=== PATIENT | female | born 1995 | race Caucasian/White ===

== ENCOUNTER 2022-07-19 09:14 | Inpatient (IN) | payer BC ==
[~2022-07-19] VITALS: Ht 157.5 cm; Wt 49.2 kg
--- NOTE | 2022-07-19 09:28 | ED General ---
General Chief Complaint: Neurological Problems Stated Complaint: SEIZURE Source of Information: Patient, EMS Exam Limitations: No Limitations History of Present Illness Date Seen by Provider: July 19, 2022 Time Seen by Provider: 09:18 Initial Comments 26-year-old female presents to the emergency department today for reported seizure activity. She was at work when she had a witnessed seizure-like event. She does not remember the event at all but does recall being dizzy with room spinning sensation prior to the onset of her symptoms. She denies any recent illnesses to include fevers chills chest pain shortness of breath abdominal pain or changes in bowel or bladder habits. She does have a myriad of chronic GI issues and has a PEG tube in place for nutrition as she has frequent vomiting and diarrhea. She states she is chronically hypokalemic. No history of seizure disorder. All other systems reviewed and negative except documented per HPI. Voice recognition software was used to help create this chart Allergies and Home Medications Allergies Coded Allergies: gluten (Verified Allergy, Unknown, 07/19/22) prochlorperazine (Verified Allergy, Unknown, 07/19/22) Patient Home Medication List Home Medication List Reviewed: Yes Acetaminophen (Tylenol Extra Strength) 500 Mg Tablet, 500-1,000 MG PO Q8H PRN for PAIN-MILD (1-4), (Reported) Entered as Reported by: LISA GUAJARDO on 07/19/221506 Last Action: Reviewed Baclofen (Baclofen) 10 Mg Tablet, 10 MG PO TID, (Reported) Entered as Reported by: LISA GUAJARDO on 07/19/221506 Last Action: Reviewed Chlorpromazine HCl (Chlorpromazine HCl) 10 Mg Tablet, 10 MG PO HS, (Reported) Entered as Reported by: LISA GUAJARDO on 07/19/221506 Last Action: Reviewed Hydroxyzine HCl (Hydroxyzine HCl) 10 Mg/5 Ml Solution, 5 ML PO TID PRN for ANXIETY/HIVES, (Reported) Entered as Reported by: LISA GUAJARDO on 07/19/221506 Last Action: Reviewed Ibuprofen (Ibuprofen) 200 Mg Tablet, 400-600 MG PO Q8H PRN for PAIN-MILD (1-4), (Reported) Entered as Reported by: LISA GUAJARDO on 07/19/221506 Last Action: Reviewed Mirtazapine (Mirtazapine) 15 Mg Tab.rapdis, 7.5 MG PO HS, (Reported) Entered as Reported by: LISA GUAJARDO on 07/19/221506 Last Action: Reviewed Multivitamin (Multivitamin) 1 Each Tablet, 1 EACH PO DAILY, (Reported) Entered as Reported by: LISA GUAJARDO on 07/19/221506 Last Action: Reviewed Omeprazole Magnesium (Omeprazole Magnesium) 20 Mg Capsule.dr, 20 MG PO DAILY, (Reported) Entered as Reported by: LISA GUAJARDO on 07/19/221506 Last Action: Reviewed Promethazine HCl (Promethazine Tablet) 25 Mg Tablet, 12.5-25 MG PO TID, (Report ed) Entered as Reported by: LISA GUAJARDO on 07/19/221506 Last Action: Reviewed Review of Systems Review of Systems Constitutional: see HPI Past Npeolrj-Jwmlun-Vbfyez Hx Patient Social History Tobacco Use?: No Use of E-Cig and/or Vaping dev: No Substance use?: No Alcohol Use?: No Family Medical History Reviewed Nursing Family Hx No Pertinent Family Hx Physical Exam Vital Signs Vital Signs - First Documented 07/19/22 09:14 Temp 35.0 Pulse 109 Resp 20 B/P (MAP) 125/63 (83) Pulse Ox 100 O2 Delivery Room Air Capillary Refill : Height, Weight, BMI Height: '" Weight: lbs. oz. kg; BMI Method: General Appearance: No Apparent Distress, WD/WN Eyes: Bilateral Eye Normal Inspection, Bilateral Eye PERRL, Bilateral Eye EOMI HEENT: Pharynx Normal, Other (Abrasion left lateral tongue) Neck: Full Range of Motion, Non Tender, Supple Respiratory: Chest Non Tender, Lungs Clear, Normal Breath Sounds, No Accessory Muscle Use Cardiovascular: Regular Rate, Rhythm, No Murmur, Normal Peripheral Pulses Gastrointestinal: Normal Bowel Sounds, Non Tender, Soft, Other (PEG tube left main abdomen) Extremity: Normal Capillary Refill, Normal Inspection, Normal Range of Motion, Non Tender, No Calf Tenderness Neurologic/Psychiatric: Alert, Oriented x3, No Motor/Sensory Deficits, Normal Mood/Affect, market development executive II-XII Norm as Tested Progress/Results/Core Measures Suspected Sepsis SIRS Temperature: Pulse: Respiratory Rate: Laboratory Tests 07/19/22 09:35: White Blood Count 9.1 Blood Pressure / Mean: Laboratory Tests 07/19/22 09:35: Creatinine 0.88, Platelet Count 527H, Total Bilirubin 0.2 Results/Orders Lab Results Laboratory Tests Test 07/19/22 09:35 Range/Units White Blood Count 9.1 4.3-11.0 10^3/uL Red Blood Count 4.94 3.80-5.11 10^6/uL Hemoglobin 13.6 11.5-16.0 g/dL Hematocrit 40 35-52 % Mean Corpuscular Volume 81 80-99 fL Mean Corpuscular Hemoglobin 28 25-34 pg Mean Corpuscular Hemoglobin Concent 34 32-36 g/dL Red Cell Distribution Width 13.3 10.0-14.5 % Platelet Count 527 H 130-400 10^3/uL Mean Platelet Volume 8.7 L 9.0-12.2 fL Immature Granulocyte % (Auto) 0 % Neutrophils (%) (Auto) 42 42-75 % Lymphocytes (%) (Auto) 46 H 12-44 % Monocytes (%) (Auto) 9 0-12 % Eosinophils (%) (Auto) 1 0-10 % Basophils (%) (Auto) 1 0-10 % Neutrophils # (Auto) 3.8 1.8-7.8 10^3/uL Lymphocytes # (Auto) 4.2 H 1.0-4.0 10^3/uL Monocytes # (Auto) 0.8 0.0-1.0 10^3/uL Eosinophils # (Auto) 0.1 0.0-0.3 10^3/uL Basophils # (Auto) 0.1 0.0-0.1 10^3/uL Immature Granulocyte # (Auto) 0.0 0.0-0.1 10^3/uL Sodium Level 133 L 135-145 MMOL/L Potassium Level 2.6 L 3.6-5.0 MMOL/L Chloride Level 95 L 98-107 MMOL/L Carbon Dioxide Level 21 21-32 MMOL/L Anion Gap 17 H 5-14 MMOL/L Blood Urea Nitrogen 10 7-18 MG/DL Creatinine 0.88 0.60-1.30 MG/DL Estimat Glomerular Filtration Rate 92 BUN/Creatinine Ratio 11 Glucose Level 95 70-105 MG/DL Calcium Level 10.3 H 8.5-10.1 MG/DL Corrected Calcium 9.9 8.5-10.1 MG/DL Magnesium Level 1.9 1.6-2.4 MG/DL Total Bilirubin 0.2 0.1-1.0 MG/DL Aspartate Amino Transf (AST/SGOT) 36 H 5-34 U/L Alanine Aminotransferase (ALT/SGPT) 34 0-55 U/L Alkaline Phosphatase 93 40-136 U/L Total Protein 7.5 6.4-8.2 GM/DL Albumin 4.5 3.2-4.5 GM/DL My Orders Orders - LUIS FORD DO Comprehensive Metabolic Panel (07/19/22 09:26) Ct Head Wo (07/19/22 09:26) Ekg Tracing (07/19/22 09:26) Cbc With Automated Diff (07/19/22 09:26) Diazepam Injection (Valium Injection) (07/19/22 09:30) Magnesium (07/19/22 10:33) Potassium Cl 10meq/50ml Ivpb (Kcl 10 Meq (07/19/22 10:45) Potassium Chloride (Tablet) (K Dur Table (07/19/22 10:45) Ed Admission (Communication) (07/19/22 10:35) Ns Iv 500 Ml (Sodium Chloride 0.9%) (07/19/22 10:40) Promethazine Injection (Phenergan Injec (07/19/22 10:45) Medications Given in ED Current Medications Medications Dose Ordered Sig/Emily Route Start Time Stop Time Status Last Admin Dose Admin Diazepam 2.5 mg ONCE ONCE IVP 07/19/22 09:30 07/19/22 09:31 DC 07/19/22 09:52 2.5 MG Potassium Chloride 40 meq ONCE ONCE PO 07/19/22 10:45 07/19/22 10:46 DC 07/19/22 10:43 40 MEQ Promethazine HCl 25 mg ONCE ONCE IVP 07/19/22 10:45 07/19/22 10:46 DC 07/19/22 10:55 25 MG Sodium Chloride 500 ml @ STK-MED ONCE .ROUTE 07/19/22 10:40 07/19/22 10:42 DC 07/19/22 10:43 100 MLS/HR Vital Signs/I&O 5/17/23 5/17/23 5/17/23 5/17/23 09:14 11:28 11:45 11:45 Temp 35.0 35.0 Pulse 109 102 Resp 20 16 B/P (MAP) 125/63 (83) 97/64 105/68 (80) Pulse Ox 100 100 98 O2 Delivery Room Air Room Air Room Air Room Air 07/19/22 11:45 Pulse 99 Capillary Refill : ECG Comment Sinus rhythm with a rate of 94 bpm. Normal intervals. Normal axis. No ST or T wave abnormalities. No ectopy. Critical Care Note Critical Care Total Time (minutes) 40 Departure Communication (Admissions) Patient is hemodynamically stable. She had no recurrence of seizure-like activity here though she did find her tongue I do think she actually had a seizure. Potassium is quite low here. The concern that she may have had a dysrhythmia causing seizure activity. She was having some vertiginous type symptoms when she got here. She is given p.o. Valium and this did improve her symptoms. CT scan of her head is negative. I have independently reviewed the images as well. Sodium is slightly low and calcium is a little high. I have added a magnesium level onto her current labs after hypokalemia was identified. I ordered IV potassium as well as p.o. for repletion. I Dr. Dr. Hendricks who wants to admit the patient to the ICU for cardiac monitoring, potassium repletion. I talked to Dr. Peña at her request and he agrees to see the patient in consult Impression Primary Impression: Hypokalemia Additional Impression: Observed seizure-like activity Disposition: ADMITTED INPATIENT Condition: Stable Admissions Decision to Admit Reason: Admit from ER (General) LUIS FORD DO July 19, 2022 09:28
--- NOTE | 2022-07-19 09:54 | Diagnostic Imaging Report ---
PROCEDURE: CT head without contrast. TECHNIQUE: Multiple contiguous axial images were obtained through the brain without the use of intravenous contrast. Auto Exposure Controls were utilized during the CT exam to meet ALARA standards for radiation dose reduction. INDICATION: Seizure with loss of consciousness. FINDINGS: The ventricles and sulci are within normal limits for size. There is no intracranial hemorrhage identified. There is no abnormal mass effect or shift of the midline structures. IMPRESSION: Unremarkable CT of the head. Dictated by: Dictated on workstation # [id number]
[2022-07-19 09:55] LABS: ALBUMIN 4.5 GM/DL (3.2-4.5); POTASSIUM 2.6 MMOL/L (3.6-5.0)
[2022-07-19 09:56] LABS: CALCIUM 10.3 MG/DL (8.5-10.1)
[2022-07-19 09:57] LABS: TOTAL PROTEIN 7.5 GM/DL (6.4-8.2)
[2022-07-19 09:58] LABS: BASOPHILS # (AUTO) 0.1 10^3/uL (0.0-0.1); BASOPHILS % (AUTO) 1 % (0-10); EOSINOPHILS # (AUTO) 0.1 10^3/uL (0.0-0.3); EOSINOPHILS % (AUTO) 1 % (0-10); HEMATOCRIT 40 % (35-52); HEMOGLOBIN 13.6 g/dL (11.5-16.0); LYMPHOCYTES # (AUTO) 4.2 10^3/uL (1.0-4.0); LYMPHOCYTES % (AUTO) 46 % (12-44); MEAN CORPUSCULAR HEMOGLOBIN 28 pg (25-34); MEAN CORPUSCULAR HGB CONC 34 g/dL (32-36); MEAN CORPUSCULAR VOLUME 81 fL (80-99); MEAN PLATELET VOLUME 8.7 fL (9.0-12.2); MONOCYTES # (AUTO) 0.8 10^3/uL (0.0-1.0); MONOCYTES % (AUTO) 9 % (0-12); NEUTROPHILS # (AUTO) 3.8 10^3/uL (1.8-7.8); NEUTROPHILS % (AUTO) 42 % (42-75); PLATELET COUNT 527 10^3/uL (130-400); WHITE BLOOD COUNT 9.1 10^3/uL (4.3-11.0)
[2022-07-19 09:59] LABS: BILIRUBIN,TOTAL 0.2 MG/DL (0.1-1.0)
[2022-07-19 10:01] LABS: CREATININE SERUM 0.88 MG/DL (0.60-1.30)
[2022-07-19] MEDS ORDERED: NS IV 500 ML 500 ML ONE (10:40)
[2022-07-19] MEDS: POTASSIUM CL 10MEQ/50ML IVPB 50 ML IV SCH ×3 (10:43→13:55)
[2022-07-19] MEDS ORDERED: PROMETHAZINE INJ 25 MG/ML (PHENERGAN) AMP IVP ONE (10:45)
[2022-07-19] MEDS ORDERED: KCL 20 MEQ TAB (K-DUR) PO ONE (10:45)
--- NOTE | 2022-07-19 11:17 | Consultation-Cardiology ---
HPI-Cardiology Cardiology Consultation Date of Consultation 07/19/22 Date of Admission Time Seen by Provider: 14:00 Indication: syncope HPI Patient is a very pleasant 26 y.o. female with history of Celiac disease.Reports history of chronic hypokalemia. Has PEG tube. Patient works at [employer] in [place] and reports she was getting an event ready at work when she had witnessed syncopal event with seizure-like activity while standing. Patient reports feeling dizzy and lightheaded just prior to event and then remembers being in ambulance. Denies any chest pain, dypsnea, palpitations. Denies any previous history of dizziness, lightheadedness or seizure. Home Medications & Allergies Allergies: Coded Allergies: gluten (Verified Allergy, Unknown, 07/19/22) prochlorperazine (Verified Allergy, Unknown, 07/19/22) Home Medication List Reviewed: Yes OTH-[id number]-Yqmygc Hx Patient Social History Employed/Student: employed Smoking Status: Never a Smoker Have you traveled recently?: No Alcohol Use?: No Substance type: Marijuana Past Medical History Celiac disease Family Medical History Significant Family History: No Pertinent Family Hx Review of Systems-General Review of Systems Constitutional: see HPI EENTM: see HPI, no symptoms reported; No blurred vision, No double vision Respiratory: see HPI; No dyspnea on exertion, No short of breath Cardiovascular: see HPI; No chest pain, No Hx of Intervention, No syncope, No vascular heart diseas Genitourinary: No dysuria, No frequency Musculoskeletal: No back pain, No joint pain Reviewed Test Results Reviewed Test Results Lab Laboratory Tests 07/19/22 09:35: White Blood Count 9.1, Red Blood Count 4.94, Hemoglobin 13.6, Hematocrit 40, Mean Corpuscular Volume 81, Mean Corpuscular Hemoglobin 28, Mean Corpuscular Hemoglobin Concent 34, Red Cell Distribution Width 13.3, Platelet Count 527H, Mean Platelet Volume 8.7L, Immature Granulocyte % (Auto) 0, Neutrophils (%) (Auto) 42, Lymphocytes (%) (Auto) 46H, Monocytes (%) (Auto) 9, Eosinophils (%) (Auto) 1, Basophils (%) (Auto) 1, Neutrophils # (Auto) 3.8, Lymphocytes # (Auto) 4.2H, Monocytes # (Auto) 0.8, Eosinophils # (Auto) 0.1, Basophils # (Auto) 0.1, Immature Granulocyte # (Auto) 0.0, Sodium Level 133L, Potassium Level 2.6L, Chloride Level 95L, Carbon Dioxide Level 21, Anion Gap 17H, Blood Urea Nitrogen 10, Creatinine 0.88, Estimat Glomerular Filtration Rate 92, BUN/Creatinine Ratio 11, Glucose Level 95, Calcium Level 10.3H, Corrected Calcium 9.9, Magnesium Level 1.9, Total Bilirubin 0.2, Aspartate Amino Transf (AST/SGOT) 36H, Alanine Aminotransferase (ALT/SGPT) 34, Alkaline Phosphatase 93, Total Protein 7.5, Albumin 4.5 ECG Impression ECG Initial ECG Rhythm: Normal Sinus Physical Exam Physical Exam Vital Signs Vital Signs - First Documented 07/19/22 09:14 Temp 35.0 Pulse 109 Resp 20 B/P (MAP) 125/63 (83) Pulse Ox 100 O2 Delivery Room Air Capillary Refill : Height, Weight, BMI Height: '" Weight: lbs. oz. kg; 18.00 BMI Method: General Appearance: No Apparent Distress, WD/WN Eyes: Bilateral Eye Normal Inspection, Bilateral Eye PERRL, Bilateral Eye EOMI HEENT: Pharynx Normal, Other (Abrasion left lateral tongue) Neck: Full Range of Motion, Non Tender, Supple Respiratory: Chest Non Tender, Lungs Clear, Normal Breath Sounds, No Accessory Muscle Use Cardiovascular: Regular Rate, Rhythm, No Murmur, Normal Peripheral Pulses Gastrointestinal: Normal Bowel Sounds, Non Tender, Soft, Other (PEG tube left main abdomen) Extremity: Normal Capillary Refill, Normal Inspection, Normal Range of Motion, Non Tender, No Calf Tenderness Neurologic/Psychiatric: Alert, Oriented x3, No Motor/Sensory Deficits, Normal Mood/Affect, marketing support coordinator II-XII Norm as Tested A/P-Cardiology Admission Diagnosis Syncope with Seizure like activity Hypokalemia Hyponatremia Celiac disease Assessment/Plan Sycnope with Seizure like activity- had syncopal episode at work while standing earlier today. Reports hx of syncope in the remote past. Reports episode of dizziness and lightheadedness just prior to event. Denies any hx of seizure disorder. EKG showing SR. I am suspecting orthostatic hypotension, although underlying arrythmia cannot be ruled out. Will place on telemetry to continue to monitor for any underlying arrhythmia. Evaluate 2D Echo. Will plan for [facility] 2 week event monitor prior to discharge. Celiac disease, has PEG tube Hypokalemia, replace and continue to monitor. Reports hx of chronic hypokalemia Hyponatremia Thank you for allowing us to participate in the management of Ms. Engel. This is Paulina Barragan PA-C, as a scribe for Dr. Peña. Patient was seen and evaluated with Paulina, she was laying down in bed, feeling better Patient does not describe any aura, no significant postictal episode. I am not sure if she had syncope secondary to hypotension or cardiac arrhythmia due to hypokalemia. Patient reported history of chronic hypokalemia and she is tolerating her baseline hypokalemia Receiving potassium Will monitor on telemetry, evaluate 2D echo, will consider Zio patch Discussed increasing fluid and salt intake and try to keep her blood pressure elevated. Increase her caloric intake PAULINA JONES July 19, 2022 11:17 OTILIA PEÑA MD July 19, 2022 15:17
[2022-07-19 11:28] VITALS: BP 97/64
[2022-07-19] MEDS ORDERED: HYDROmorphone 2 MG/ML VIAL (DILAUDID) IVP PRN (12:00)
[2022-07-19] MEDS ORDERED: MELATONIN 3 MG TABLET PO PRN (12:00)
--- NOTE | 2022-07-19 12:31 | History & Physical-Hospitalist ---
History of Present Illness HPI/Chief Complaint Pt is a 26yoCF with a PMH of celiac disease, gastroparesis, PEG and TPN dependent status, and chronic hypokalemia who presented to the ER due to seizure like activity. She states she was setting up for an event at her job ([employer]) and moving tabel when she started to feel lightheaded and dizzy. She states her coworker noticed she didn't look right and asked her about it. She then doesnt' rememeber anything. Per witnesses she passed out and had tonic clonic like movements. She did not have any urinary incontinence but did bite her tongue. Then next thing she remembers is waking up in an ambulance. She sta ajit it took her a minute to get her bearings but does not describe any postictal type symptoms. She also complains of some chronic abd pain and some back pain since this happened. She normally takes Baclofen but in the hospital is given Dilaudid which helps. Source: patient Date Seen 07/19/22 Time Seen by a Provider: 12:21 Attending Physician Claudia Van DO PCP Admitting Physician: Steven Talbert MD Attending Physician: Steven Talbert MD Referring Physician Date of Admission July 19, 2022 at 11:45 Home Medications & Allergies Home Medications Reviewed patient Home Medication Reconciliation performed by pharmacy medication reconciliations electrical equipment technician and/or nursing. Patients Allergies have been reviewed. Allergies Allergies Coded Allergies gluten (Verified Allergy, Unknown, 07/19/22) prochlorperazine (Verified Allergy, Unknown, 07/19/22) Past Kvtiood-Czhciw-Dbwetm Hx Patient Social History Employed/Student: employed Tobacco Use?: No Smoking Status: Never a Smoker Use of E-Cig and/or Vaping dev: No Substance use?: Yes Substance type: Marijuana Additional substance use comme: MEDICAL CARD Alcohol Use?: No Pt feels they are or have been: No Immunizations Up To Date First/Initial COVID19 Vaccinat: YES Second COVID19 Vaccination Richard: YES Tetanus Booster (TDap): Unknown Current Status status: No status: No Communicates: Verbally Primary Language: American Preferred Spoken Language: American Implanted or Applied Medical D: Central venous access Family Medical History Reviewed Nursing Family Hx No Pertinent Family Hx Review of Systems Constitutional: see HPI Physical Exam Physical Exam Vital Signs Vital Signs - First Documented 07/19/22 09:14 Temp 35.0 Pulse 109 Resp 20 B/P (MAP) 125/63 (83) Pulse Ox 100 O2 Delivery Room Air Capillary Refill : Height, Weight, BMI Height: '" Weight: lbs. oz. kg; 18.00 BMI Method: General Appearance: No Apparent Distress, Chronically ill, Thin Respiratory: Lungs Clear, No Accessory Muscle Use, No Respiratory Distress Cardiovascular: Regular Rate, Rhythm, No Murmur Gastrointestinal: Normal Bowel Sounds, Soft, Other (PEG tube) Extremity: No Calf Tenderness, No Pedal Edema Neurologic/Psychiatric: Alert, Oriented x3, Normal Mood/Affect Results Results/Procedures Labs Laboratory Tests 07/19/22 09:35 07/19/22 17:57 07/20/22 05:18 Patient resulted labs reviewed. Imaging: Reviewed Imaging Report [facility] [place], [place] NAME: ASHLIE KING [facility] REC#: [id number] PT STATUS: ADM Maeve : 1995 PHYSICIAN: LUIS FORD DO ADMIT DATE: 07/19/22/ICU Signed Date of Exam:07/19/22 CT HEAD WO PROCEDURE: CT head without contrast. TECHNIQUE: Multiple contiguous axial images were obtained through the brain without the use of intravenous contrast. Auto Exposure Controls were utilized during the CT exam to meet ALARA standards for radiation dose reduction. INDICATION: Seizure with loss of consciousness. FINDINGS: The ventricles and sulci are within normal limits for size. There is no intracranial hemorrhage identified. There is no abnormal mass effect or shift of the midline structures. IMPRESSION: Unremarkable CT of the head. Dictated by: Dictated on workstation # [id number] Dict: 07/19/22 0949 Trans: 07/19/22 1149 [id number] Interpreted by: SUKI CHAIREZ MD Electronically signed by: SUKI CHAIREZ MD 07/19/22 1149 Assessment/Plan Admission Diagnosis Syncope with seizure like activity Admission Status: Observation Assessment and Plan Syncope from orthostasis vs seizure like activity vs arrythmia Hypokalemia Unsure if seizure Did bite tongue but otherwise sounds like syncope Discussed risks with patient and she is agreeable with Keppra and Neurology outpatient referral Cardiology consulted, appreciate recs Is very hypokalemic so concerning for underlying arrythmia as well They plan to place Zio patch tomorrow if nothing shows up on telemetry tonight Celiac disease PEG/TPN dependent Chronic Diarrhea Chronic Abd pain Celiac diet Diagnosis/Problems Diagnosis/Problems (1) Observed seizure-like activity (2) Hypokalemia STEVEN TALBERT MD July 19, 2022 12:31
[2022-07-19] MEDS: BACLOFEN 10 MG (LIORESAL) TAB PO SCH ×2 (12:47→20:25)
[2022-07-19] MEDS: ONDANSETRON 4 MG/2 ML (SDV) Z0FRAN IV PRN ×2 (14:57→21:07)
[2022-07-19] MEDS ORDERED: BACL10TA PO (15:07)
[2022-07-19] MEDS ORDERED: IBUP-2473 PO (15:07)
[2022-07-19] MEDS ORDERED: HYDR10SY16 PO (15:07)
[2022-07-19] MEDS ORDERED: MIRT-47 PO (15:07)
[2022-07-19] MEDS ORDERED: MULT-1136 PO (15:07)
[2022-07-19] MEDS ORDERED: CHLO10TA PO (15:07)
[2022-07-19] MEDS ORDERED: OMEP-254 PO (15:07)
[2022-07-19] MEDS ORDERED: ACET-2267 PO (15:07)
[2022-07-19] MEDS ORDERED: PROM25TA14 PO (15:07)
[2022-07-19] MEDS ORDERED: PROMETHAZINE INJ 25 MG/ML (PHENERGAN) AMP IVP NR (15:15)
[2022-07-19] MEDS ORDERED: HYDROmorphone 2 MG/ML VIAL (DILAUDID) IV NR (15:15)
--- NOTE | 2022-07-19 15:24 | Tele-ICU Consult ---
History of Present Illness History of Present Illness Date Seen by Provider: July 19, 2022 Time Seen by Provider: 15:23 Reason for Visit: syncope History of Present Illness (Tele-ICU Physician , consultation as per request of PCP Service provided via interactive audio and video tele[employer] E-CARE system to a patient admitted to ICU bed in [facility]. Available chart/ vitals / labs / Images reviewed H&P is from ER notes Patient's information available about PMH, Shx, Fhx allergy reviewed inEMR. ROS as per chart and RN report Now in ICU, hemodynamically stable Video assessment done using teleICU camera, rest of exam as per RN Discussed with RN. Hospital course: (07/19) 26 y/o F - Syncope - (?)Witnessed Seizure - Hx Celiac w/ Chronic Hypokal emia. A/p Sycnope with Seizure like activity- ( orthostatic hypotension vs arrythmia with low K . CTH - no abnormalities ) - cards consulted . ECHO WNL - monitor -- given p.o. Valium , keppra started Po by bedside MD N/V - as per patient , has cheronic issues and had multiple meds failed with only phenergan being helphull - resume , add PPI Celliarc dz - follows with GI - had PEG for malnutrition and intermittent TPN - ? refractory dz vs cofounding Dx - chronic abd pain ( agree with tx with dilaudid now - might need dose of steroids , but if stable enough , would rever to her GI MD ( or transfer ) Hypokalemia ( chronic ) - replace , monitor Hyponatremia - very mild Lines : , (Central Line Necessity Reviewed) [place]: OG: Nutrition: Analgesia: Anxiety/ delirium VTE Prophylaxis: Stress Ulcer Prophylaxis: ppi Glycemic Control: Plans in collaboration with bedside consultants and IM MDs. Discussed with RN to reach out if any questions or concerns A total of 20 minutes of critical care time was devoted to this patient today, required to treat and/or prevent further deterioration of critical care condition ( as above ) . I am remotely monitoring this patient from another state. I am unable to do the bedside exam, and history/physical and pertinent information is taken from other notes in the computer and bedside staff. . Allergies and Home Medications Allergies Coded Allergies: gluten (Verified Allergy, Unknown, 07/19/22) prochlorperazine (Verified Allergy, Unknown, 07/19/22) Home Medications Acetaminophen 500 Mg Tablet, 500-1,000 MG PO Q8H PRN for PAIN-MILD (1-4), (Reported) Baclofen 10 Mg Tablet, 10 MG PO TID, (Reported) Chlorpromazine HCl 10 Mg Tablet, 10 MG PO HS, (Reported) Hydroxyzine HCl 10 Mg/5 Ml Solution, 5 ML PO TID PRN for ANXIETY/HIVES, (Reported) Ibuprofen 200 Mg Tablet, 400-600 MG PO Q8H PRN for PAIN-MILD (1-4), (Reported) Mirtazapine 15 Mg Tab.rapdis, 7.5 MG PO HS, (Reported) TAKES OF A 15MG Multivitamin 1 Each Tablet, 1 EACH PO DAILY, (Reported) Omeprazole Magnesium 20 Mg Capsule.dr, 20 MG PO DAILY, (Reported) Promethazine HCl 25 Mg Tablet, 12.5-25 MG PO TID, (Reported) TAKES TO 1 (25MG) TAB Past Medical/Social/Family Hx Patient Social History Employed/Student: employed Tobacco Use?: No Smoking Status: Never a Smoker Smokeless Tobacco Frequency: Never a User Use of E-Cig and/or Vaping dev: No Substance use?: Yes Substance type: Marijuana holds medical marijuana card Alcohol Use?: No Pt stated abuse/neglect: No Immunizations Up To Date Influenza Vaccine Up-to-Date: No; Not Current First/Initial COVID19 Vaccinat: YES Second COVID19 Vaccination Richard: YES Tetanus Booster (TDap): Unknown Hepatitis A: Yes Hepatitis B: Yes Current Status status: No status: No Advance Directives: No Communicates: Verbally Primary Language: Cymraes Preferred Spoken Language: Cymraes Is interpretation needed?: No Implanted or Applied Medical D: Port-a-cath Review of Systems Constitutional: see HPI Focused Exam Height, Weight, BMI Height: '" Weight: lbs. oz. kg; 18.18 BMI Method: Exam Exam Patient acknowledged, consented, and participated in this virtual visit which was conducted using real time audio/video Vital Signs Date Time Temp Pulse Resp B/P (MAP) Pulse Ox O2 Delivery O2 Flow Rate FiO2 07/19/22 13:00 93 07/19/22 12:00 36.3 100 112/76 (88) 98 Room Air 07/19/22 11:45 99 07/19/22 11:45 105/68 (80) Room Air 07/19/22 11:28 35.0 102 16 97/64 100 Room Air 07/19/22 09:14 35.0 109 20 125/63 (83) 100 Room Air Height & Weight Height: '" Weight: lbs. oz. 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
[2022-07-19] MEDS: PANTOPRAZOLE 40 MG (PROTONIX) VIAL IVP SCH (15:39)
[2022-07-19] MEDS: HYDROmorphone 2 MG/ML VIAL (DILAUDID) IVP PRN ×3 (17:44→22:22)
[2022-07-19] MEDS: ACETAMINOPHEN 325 MG TABLET PO PRN (17:53)
[2022-07-19 18:18] LABS: POTASSIUM 3.7 MMOL/L (3.6-5.0)
[2022-07-19 18:23] LABS: CREATININE SERUM 0.67 MG/DL (0.60-1.30)
--- NOTE | 2022-07-19 18:27 | Diagnostic Imaging Report ---
INDICATION: ICU fever EXAMINATION: Chest 07/19/2022 FINDINGS: There is a chest port on the left with the tip at the junction of the SVC and right atrium. There is a right PICC line with the tip in the distal SVC. Heart and pulmonary vasculature normal. Lungs and pleural spaces clear. No pneumothorax. IMPRESSION: 1. No acute cardiopulmonary process. Dictated by: Dictated on workstation # [id number]
[2022-07-19] MEDS: MAGNESIUM 1 GM/100 ML IVPB 100 ML IV SCH ×2 (18:30→19:25)
--- NOTE | 2022-07-19 18:44 | Tele-ICU Progress Note ---
Progress Note patient developed fever patient report what had fever 2 weeks ago - blood work was done - negative results , resolved spontaneously cxr done - no infiltrate UA pending ordering PCT and blood cx form PICC ( placed 5 weeks ago , used nightly for TPN by patient ) ,and perpherally covid pending consider ABX if fever persists Focused Exam Height, Weight, BMI Height: '" Weight: lbs. oz. kg; 18.18 BMI Method: NICKY IZQUIERDO MD July 19, 2022 18:44
[2022-07-19] MEDS ORDERED: KCL 10 MEQ TAB (MICRO K) PO NR (18:45)
[2022-07-19] MEDS ORDERED: NS IV 500 ML 500 ML IV ONE (19:30)
[2022-07-19] MEDS ORDERED: VANCOMYCIN INJECTION 0.1 MG in NS (IVPB) 250 ML IV SCH (19:30)
[2022-07-19] MEDS ORDERED: VANCOMYCIN 1 GM/NS 250 ML IVPB IV NR ×2 (19:30)
[2022-07-19] MEDS: PROMETHAZINE 25 MG (PHENERGAN) TAB PO PRN (19:56)
[2022-07-19] MEDS: CEFEPIME INJECTION 1,000 MG in NS (IVPB) 50 ML IV SCH (20:33)
[2022-07-19 23:38] LABS: BILIRUBIN,URINE NEGATIVE (NEGATIVE); CLARITY,URINE CLEAR; COLOR,URINE YELLOW; GLUCOSE, URINE (UA) NEGATIVE (NEGATIVE); KETONES,URINE NEGATIVE (NEGATIVE); LEUKOCYTE ESTERASE ,URINE 1+ (NEGATIVE); NITRITE,URINE NEGATIVE (NEGATIVE); PROTEIN,URINE TRACE (NEGATIVE)
[2022-07-19 23:46] LABS: BACTERIA,URINE MODERATE /HPF
[2022-07-20] MEDS: PROMETHAZINE 25 MG (PHENERGAN) TAB PO PRN ×2 (00:04→04:23)
[2022-07-20] MEDS: HYDROmorphone 2 MG/ML VIAL (DILAUDID) IVP PRN ×10 (00:05→23:11)
[2022-07-20] MEDS ORDERED: VANCOMYCIN 500 MG/VIAL IV ONE (00:51)
[2022-07-20] MEDS ORDERED: NS (IVPB) 100 ML ONE (00:51)
[2022-07-20] MEDS: CEFEPIME INJECTION 1,000 MG in NS (IVPB) 50 ML IV SCH ×4 (01:16→20:35)
[2022-07-20] MEDS: ACETAMINOPHEN 325 MG TABLET PO PRN (01:45)
[2022-07-20] MEDS: VANCOMYCIN 500 MG/NS 100 ML IVPB IV SCH ×6 (02:47→19:24)
[2022-07-20 05:26] LABS: HEMATOCRIT 29 % (35-52); MEAN CORPUSCULAR HEMOGLOBIN 28 pg (25-34); MEAN CORPUSCULAR HGB CONC 34 g/dL (32-36); MEAN CORPUSCULAR VOLUME 82 fL (80-99); MEAN PLATELET VOLUME 8.8 fL (9.0-12.2); PLATELET COUNT 253 10^3/uL (130-400); WHITE BLOOD COUNT 4.4 10^3/uL (4.3-11.0)
[2022-07-20 05:42] LABS: CALCIUM 7.9 MG/DL (8.5-10.1); CREATININE SERUM 0.65 MG/DL (0.60-1.30); POTASSIUM 4.3 MMOL/L (3.6-5.0)
[2022-07-20] MEDS: ONDANSETRON 4 MG/2 ML (SDV) Z0FRAN IV PRN ×2 (05:51→12:44)
[2022-07-20] MEDS ORDERED: HYDROXYZINE HCL PO PRN (07:45)
--- NOTE | 2022-07-20 08:11 | Cardiology Progress Note ---
Subjective Date Seen by Provider: July 20, 2022 Time Seen by Provider: 08:09 Subjective/Events-last exam Patient was seen at bedside, complained of nausea, vomiting and diarrhea, had fever and hypotension Review of Systems General: No Chills, No Night Sweats; Fatigue; No Malaise, No Appetite, No Other HEENT: No Head Aches, No Visual Changes, No Eye Pain, No Ear Pain, No Dysphasia, No Sinus Congestion, No Post Nasal Drip, No Sore Throat, No Other Pulmonary: No Dyspnea, No Cough, No Pleuritic Chest Pain, No Other Cardiovascular: No: Chest Pain, Palpitations, Orthopnea, Paroxysmal Noc. Dyspnea, Edema, Lt Headedness, Other Objective-Cardiology Exam Last Set of Vital Signs Vital Signs 07/20/22 07/20/22 06:00 07:38 Temp 37.4 Pulse 105 Resp 16 B/P (MAP) 87/56 (66) Pulse Ox 96 O2 Delivery Room Air I&O Intake and Output 07/20/22 00:00 Intake Total 1565 ml Balance 1565 ml Intake Oral 465 ml IV Total 1100 ml # Voids 3 # Bowel Movements 2 Daily Weight Change No General: Alert, Oriented X3, Cooperative HEENT: Atraumatic, PERRLA Neck: Supple, No JVD, No Thyromegaly Lungs: Clear to Auscultation, Normal Air Movement Heart: Normal S1, Normal S2, No Murmurs, Other (Tachycardia) Abdomen: Soft, No Hepatosplenomegaly, No Masses Extremities: No Clubbing, No Cyanosis, No Edema, Normal Pulses, No Tenderness/Swelling Skin: No Rashes, No Breakdown, No Significant Lesion Neuro: Normal Speech, Normal Tone, Sensation Intact Psych/Mental Status: Mental Status NL, Mood NL Results Lab Laboratory Tests 07/19/22 09:35 07/19/22 17:57 07/20/22 05:18 A/P-Cardiology Admission Diagnosis Syncope with Seizure like activity Hypokalemia Hyponatremia Celiac disease Assessment/Plan Sycnope with Seizure like activity- had syncopal episode at work while standing earlier today. Reports hx of syncope in the remote past. Reports episode of dizziness and lightheadedness just prior to event. Denies any hx of seizure disorder. EKG showing SR. I am suspecting orthostatic hypotension, although underlying arrythmia cannot be ruled out. Most probably hypotension resulted in syncope We will continue monitoring blood pressure Planning to evaluate event recorder as an outpatient Fever, diarrhea, nausea and vomiting and hypotension Dehydration, recommend starting IV fluid Discussed with Dr. Hendricks Celiac disease, has PEG tube Hypokalemia, replace and continue to monitor. Reports hx of chronic hypokalemia Hyponatremia OTILIA FITZGERALD MD July 20, 2022 08:11
[2022-07-20] MEDS: BACLOFEN 10 MG (LIORESAL) TAB PO SCH ×3 (09:00→20:44)
[2022-07-20] MEDS: PANTOPRAZOLE 40 MG (PROTONIX) VIAL IVP SCH (09:11)
[2022-07-20] MEDS: PROMETHAZINE INJ 25 MG/ML (PHENERGAN) AMP IVP PRN ×3 (09:12→20:44)
[2022-07-20] MEDS: PROMETHAZINE 25 MG (PHENERGAN) TAB PO SCH ×3 (09:17→20:50)
[2022-07-20] MEDS: PANTOPRAZOLE 20 MG TABLET (PROTONIX) PO SCH (09:17)
[2022-07-20] MEDS: NS IV 1000 ML 1,000 ML IV SCH ×2 (09:21→17:42)
--- NOTE | 2022-07-20 10:19 | Tele-ICU Progress Note ---
Subjective Date Seen by a Provider: July 20, 2022 Time Seen by a Provider: 10:19 Subjective/Events-last exam (Tele-ICU Physician , Progress Note ) Service provided via interactive audio and video telecommunications E-CARE system to a patient admitted to ICU bed in [facility]. Patient is seen today due to persistent need of ICU care Available chart/ vitals / labs / Images reviewed Video assessment done using teleICU camera, rest of exam as per RN Discussed with RN Events overnight : Afebrile hemodynamically stable Respiratory - ra I/O = Drips: ns Pressors- no Hospital course: (07/19) 26 y/o F - Syncope - (?)Witnessed Seizure - Hx Celiac w/ Chronic Hypokalemia. 07/20 fever A/p Sycnope with Seizure like activity- ( orthostatic hypotension vs arrythmia with low K . CTH - no abnormalities ) - cards consulted . ECHO WNL -- given p.o. Valium , keppra started Po by bedside MD N/V - as per patient , has cheronic issues and had multiple meds failed with only phenergan being helphull - resume - PPI Fever 38C patient report what had fever 2 weeks ago - blood work was done - negative results , resolved spontaneously cxr done - no infiltrate UA WNL PCT borderline elv covid neg cefepime and vanco 07/20 --> ( pending blood cx form PICC ( placed 5 weeks ago , used nightly for TPN by patient ) ,and perpherally Celliarc dz - follows with GI - had PEG for malnutrition and intermittent TPN - ? refractory dz vs cofounding Dx - chronic abd pain ( agree with tx with dilaudid now - might need dose of steroids , but if stable enough , would rever to her GI MD ( or transfer ) Hypokalemia ( chronic ) - replaced , monitor Nutrition - Po vs PEG TF - reasess Lines : picc right ( 5 weeks ago ) , (Central Line Necessity Reviewed) [place]: OG: Nutrition: Analgesia: Anxiety/ delirium VTE Prophylaxis: crow Stress Ulcer Prophylaxis: ppi Plans in collaboration with bedside consultants and IM MDs. Discussed with RN to reach out if any questions or concerns A total of 20 minutes of critical care time was devoted to this patient today, required to treat and/or prevent further deterioration of critical care condition ( as above ) . I am remotely monitoring this patient from another state. I am unable to do the bedside exam, and history/physical and pertinent information is taken from other notes in the computer and bedside staff. . Sepsis Event Evaluation Height, Weight, BMI Height: '" Weight: lbs. oz. kg; 20.07 BMI Method: Exam Exam Patient acknowledged, consented, and participated in this virtual visit which was conducted using real time audio/video Vital Signs Date Time Temp Pulse Resp B/P (MAP) Pulse Ox O2 Delivery O2 Flow Rate FiO2 07/20/22 07:38 37.4 07/20/22 07:25 110 07/20/22 07:00 105 11 88/58 (68) 93 Room Air 07/20/22 06:00 105 16 87/56 (66) 96 Room Air 07/20/22 05:00 18 82/49 (61) Room Air 07/20/22 04:16 96/55 (65) Room Air 07/20/22 04:00 108 17 72/45 (54) 95 Room Air 07/20/22 04:00 97 Room Air 07/20/22 03:00 37.4 124 18 80/52 (62) 94 Room Air 07/20/22 02:00 117 17 96/51 (63) 95 Room Air 07/20/22 01:45 38.3 07/20/22 01:00 117 07/20/22 01:00 114 13 95/53 (68) 95 Room Air 07/20/22 00:00 96 Room Air 07/19/22 23:00 124 16 80/50 (61) 99 Room Air 07/19/22 22:48 37.6 07/19/22 22:00 37.6 123 16 96/55 (68) 96 Room Air 07/19/22 21:30 123 14 110/66 (87) 94 Room Air 07/19/22 21:00 121 102/66 (78) 94 Room Air 07/19/22 20:00 97 Room Air 07/19/22 20:00 97/56 (67) 95 Room Air 07/19/22 19:58 38.0 07/19/22 19:45 94/61 (70) 96 Room Air 07/19/22 19:30 92/64 (72) 96 Room Air 07/19/22 19:15 38.0 92/62 (71) 95 Room Air 07/19/22 19:00 74/47 (55) 96 Room Air 07/19/22 18:40 118 07/19/22 18:23 38.7 07/19/22 18:00 121 25 94/59 (71) 98 Room Air 07/19/22 17:53 38.7 07/19/22 17:46 38.7 07/19/22 17:00 121 16 97/64 (75) 98 Room Air 07/19/22 16:00 36.9 07/19/22 16:00 120 15 101/62 (75) 96 Room Air 07/19/22 16:00 98 Room Air 07/19/22 15:00 104 17 95/59 (71) 94 Room Air 07/19/22 14:00 104 17 97/66 (76) 100 Room Air 07/19/22 13:00 112 26 107/73 (84) 98 Room Air 07/19/22 13:00 93 07/19/22 12:00 36.3 100 112/76 (88) 98 Room Air 07/19/22 11:45 99 07/19/22 11:45 105/68 (80) Room Air 07/19/22 11:45 98 Room Air 07/19/22 11:28 35.0 102 16 97/64 100 Room Air I & O 07/20/22 06:59 Intake Total 2014 ml Balance 2014 ml Height & Weight Height: '" Weight: lbs. oz. 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
--- NOTE | 2022-07-20 11:19 | Progress Note - Hospitalist ---
Subjective HPI/CC On Admission Date Seen by Provider: July 20, 2022 Pt is a 26yoCF with a PMH of celiac disease, gastroparesis, PEG and TPN dependent status, and chronic hypokalemia who presented to the ER due to seizure like activity. She states she was setting up for an event at her job ([employer]) and moving tabel when she started to feel lightheaded and dizzy. She states her coworker noticed she didn't look right and asked her about it. She t hen doesnt' rememeber anything. Per witnesses she passed out and had tonic clonic like movements. She did not have any urinary incontinence but did bite her tongue. Then next thing she remembers is waking up in an ambulance. She states it took her a minute to get her bearings but does not describe any postictal type symptoms. She also complains of some chronic abd pain and some back pain since this happened. She normally takes Baclofen but in the hospital is given Dilaudid which helps. Subjective/Events-last exam Pt reports having lots of vomiting. Developed a fever last night. Started on IV abx and cultures pending. Objective Exam Vital Signs Vital Signs Date Time Temp Pulse Resp B/P (MAP) Pulse Ox O2 Delivery O2 Flow Rate FiO2 07/20/22 10:00 62 83/52 (62) 94 Room Air 07/20/22 09:00 14 07/20/22 07:38 37.4 Capillary Refill : General Appearance: No Apparent Distress, Chronically ill, Thin Respiratory: Lungs Clear, No Respiratory Distress Cardiovascular: Regular Rate, Rhythm, No Murmur Gastrointestinal: Normal Bowel Sounds, Other (PEG) Extremity: Other (PICC in place) Neurologic/Psychiatric: Alert, Oriented x3 Results/Procedures Lab Laboratory Tests 07/19/22 17:57 07/20/22 05:18 Patient resulted labs reviewed. Imaging: Reviewed Imaging Report Assessment/Plan Assessment and Plan Assess & Plan/Chief Complaint Syncope from orthostasis vs seizure like activity vs arrythmia Hypokalemia- resolved Unsure if seizure Did bite tongue but otherwise sounds like syncope and prolactin elevated Discussed risks with patient and she is agreeable with Keppra and Neurology outpatient referral Cardiology consulted, appreciate recs They plan to place Zio patch upon discharge Fever Developed fever last night Started on Vanc and Cefepime Await cultures given port and PICC in place (PICC relatively new) Celiac disease PEG/TPN dependent Chronic Diarrhea Chronic Abd pain Celiac diet Continue home meds as able Diagnosis/Problems Diagnosis/Problems (1) Observed seizure-like activity (2) Hypokalemia STEVEN FITZGERALD MD July 20, 2022 11:19
[2022-07-20] MEDS ORDERED: TROUGH ORDER-PHARMACY XX NR (18:00)
[2022-07-21] MEDS: CEFEPIME INJECTION 1,000 MG in NS (IVPB) 50 ML IV SCH ×4 (00:59→20:16)
[2022-07-21] MEDS: PROMETHAZINE 25 MG (PHENERGAN) TAB PO PRN (00:59)
[2022-07-21] MEDS: HYDROmorphone 2 MG/ML VIAL (DILAUDID) IVP PRN ×9 (01:00→22:17)
[2022-07-21] MEDS: NS IV 1000 ML 1,000 ML IV SCH ×2 (01:34→15:47)
[2022-07-21] MEDS: PROMETHAZINE INJ 25 MG/ML (PHENERGAN) AMP IVP PRN ×4 (03:02→22:17)
[2022-07-21] MEDS: VANCOMYCIN 500 MG/NS 100 ML IVPB IV SCH ×6 (03:02→18:48)
[2022-07-21 04:46] LABS: HEMATOCRIT 29 % (35-52); HEMOGLOBIN 9.5 g/dL (11.5-16.0); MEAN CORPUSCULAR HEMOGLOBIN 28 pg (25-34); MEAN CORPUSCULAR HGB CONC 33 g/dL (32-36); MEAN CORPUSCULAR VOLUME 83 fL (80-99); MEAN PLATELET VOLUME 9.2 fL (9.0-12.2); PLATELET COUNT 164 10^3/uL (130-400); WHITE BLOOD COUNT 3.9 10^3/uL (4.3-11.0)
[2022-07-21 05:18] LABS: CALCIUM 7.2 MG/DL (8.5-10.1); CREATININE SERUM 0.59 MG/DL (0.60-1.30); POTASSIUM 3.5 MMOL/L (3.6-5.0)
[2022-07-21] MEDS ORDERED: NS IV 500 ML 500 ML IV PRN (05:30)
[2022-07-21] MEDS: POTASSIUM CL 10MEQ/50ML IVPB 50 ML IV SCH (05:34)
[2022-07-21] MEDS: KCL 20 MEQ TAB (K-DUR) PO SCH (06:00)
[2022-07-21] MEDS: MAGNESIUM 1 GM/100 ML IVPB 100 ML IV SCH (06:03)
--- NOTE | 2022-07-21 08:08 | Cardiology Progress Note ---
Subjective Date Seen by Provider: July 21, 2022 Time Seen by Provider: 08:06 Subjective/Events-last exam Patient is laying down in bed, feeling better Still having nausea and vomiting which she reported as her baseline Objective-Cardiology Exam Last Set of Vital Signs Vital Signs 07/21/22 07/21/22 07/21/22 03:00 07:00 07:30 Temp 38.0 Pulse 110 Pulse Ox 97 O2 Delivery Room Air I&O Intake and Output 07/21/22 00:00 Intake Total 3700 ml Output Total 150 ml Balance 3550 ml Intake Oral 1250 ml IV Total 2450 ml Output Emesis 150 ml # Voids 6 # Bowel Movements 2 General: Alert, Oriented X3, Cooperative HEENT: Atraumatic, PERRLA Neck: Supple, No JVD, No Thyromegaly Lungs: Clear to Auscultation, Normal Air Movement Heart: Normal S1, Normal S2, No Murmurs, Other (Sinus tachycardia) Abdomen: Soft, No Hepatosplenomegaly, No Masses Extremities: No Clubbing, No Cyanosis, No Edema, Normal Pulses, No Tenderness /Swelling Skin: No Rashes, No Breakdown, No Significant Lesion Neuro: Normal Speech, Normal Tone, Sensation Intact Psych/Mental Status: Mental Status NL, Mood NL Results Lab Laboratory Tests 07/21/22 03:59 A/P-Cardiology Admission Diagnosis Syncope with Seizure like activity Hypokalemia Hyponatremia Celiac disease Assessment/Plan Sycnope with Seizure like activity. Reports hx of syncope in the remote past. Reports episode of dizziness and lightheadedness just prior to event. Denies any hx of seizure disorder. EKG showing SR. I am suspecting orthostatic hypotension, although underlying arrythmia cannot be excluded especially with her hypokalemia Telemetry monitoring did not show any arrhythmia other than sinus tachycardia Most probably hypotension resulted in syncope Blood pressure is better after receiving IV fluid Fever, diarrhea, nausea and vomiting and hypotension Dehydration, improving with IV fluid Management per medical team Celiac disease, has PEG tube Hypokalemia, replace and continue to monitor. Reports hx of chronic hypokalemia Hyponatremia OTILIA FITZGERALD MD July 21, 2022 08:08
[2022-07-21] MEDS ORDERED: ANIDULAFUNGIN INJECTION 200 MG in NS (IVPB) 250 ML IV ONE (08:45)
[2022-07-21] MEDS: BACLOFEN 10 MG (LIORESAL) TAB PO SCH ×3 (09:01→20:16)
[2022-07-21] MEDS: PANTOPRAZOLE 20 MG TABLET (PROTONIX) PO SCH (09:02)
[2022-07-21] MEDS: PROMETHAZINE 25 MG (PHENERGAN) TAB PO SCH (09:02)
--- NOTE | 2022-07-21 09:38 | Progress Note - Hospitalist ---
Subjective HPI/CC On Admission Date Seen by Provider: July 21, 2022 Pt is a 26yoCF with a PMH of celiac disease, gastroparesis, PEG and TPN dependent status, and chronic hypokalemia who presented to the ER due to seizure like activity. She states she was setting up for an event at her job ([employer]) and moving tabel when she started to feel lightheaded and dizzy. She states her coworker noticed she didn't look right and asked her about it. She t hen doesnt' rememeber anything. Per witnesses she passed out and had tonic clonic like movements. She did not have any urinary incontinence but did bite her tongue. Then next thing she remembers is waking up in an ambulance. She states it took her a minute to get her bearings but does not describe any postictal type symptoms. She also complains of some chronic abd pain and some back pain since this happened. She normally takes Baclofen but in the hospital is given Dilaudid which helps. Subjective/Events-last exam Pt reports doing ok today. Was planning to DC home but blood culture turned positive for yeast. Objective Exam Vital Signs Vital Signs Date Time Temp Pulse Resp B/P (MAP) Pulse Ox O2 Delivery O2 Flow Rate FiO2 07/22/22 10:00 102 96/79 (85) 97 Room Air 07/22/22 08:00 36.8 07/22/22 04:00 17 Capillary Refill : General Appearance: No Apparent Distress, Thin Respiratory: Lungs Clear, No Respiratory Distress Cardiovascular: Regular Rate, Rhythm, No Murmur Gastrointestinal: Other (PEG in place- some granulation tissue around PEG sight) Neurologic/Psychiatric: Alert, Oriented x3 Results/Procedures Lab Laboratory Tests 07/22/22 05:05 Patient resulted labs reviewed. Imaging: Reviewed Imaging Report Assessment/Plan Assessment and Plan Assess & Plan/Chief Complaint Syncope from orthostasis vs seizure like activity vs arrythmia Hypokalemia- resolved Unsure if seizure Did bite tongue but otherwise sounds like syncope and prolactin elevated Discussed risks with patient and she is agreeable with Keppra and Neurology outpatient referral Cardiology consulted, appreciate recs They plan to place Zio patch upon discharge Fever candidemia Eraxis ordered Still on Vanc and Cefepime Await cultures given port and PICC in place (PICC relatively new) Will repeat blood cultures after 24 hours on Eraxis to make sure she clears infection Celiac disease PEG/TPN dependent Chronic Diarrhea Chronic Abd pain Celiac diet Continue home meds as able Will get KUB and abd pain worse than normal after fall Diagnosis/Problems Diagnosis/Problems (1) Observed seizure-like activity (2) Hypokalemia STEVEN FITZGERALD MD July 21, 2022 09:37
--- NOTE | 2022-07-21 09:43 | Tele-ICU Progress Note ---
Subjective Date Seen by a Provider: July 21, 2022 Time Seen by a Provider: 09:42 Sepsis Event Evaluation Height, Weight, BMI Height: '" Weight: lbs. oz. kg; 19.83 BMI Method: Exam Exam Patient acknowledged, consented, and participated in this virtual visit which was conducted using real time audio/video Vital Signs Date Time Temp Pulse Resp B/P (MAP) Pulse Ox O2 Delivery O2 Flow Rate FiO2 07/21/22 09:00 114 13 98/60 (74) 100 Room Air 07/21/22 08:00 118 100/65 (76) 98 Room Air 07/21/22 08:00 37.8 07/21/22 07:30 97 Room Air 07/21/22 07:00 112 12 87/59 (69) 99 Room Air 07/21/22 07:00 110 07/21/22 06:00 110 11 85/48 (64) 98 07/21/22 06:00 107 13 85/48 (60) 98 Room Air 07/21/22 05:00 112 14 87/51 (64) 94 Room Air 07/21/22 04:13 99 Room Air 07/21/22 04:00 118 11 90/59 (67) Room Air 07/21/22 03:54 112 40 87/59 (67) 99 Room Air 07/21/22 03:30 114 13 65/42 (48) 98 Room Air 07/21/22 03:00 38.0 85/59 (66) 95 Room Air 07/21/22 02:30 16 90/54 (64) 97 Room Air 07/21/22 02:00 96/68 (74) 98 Room Air 07/21/22 01:35 37.4 07/21/22 01:00 109 07/21/22 00:11 105 17 97/63 (76) 100 Room Air 07/21/22 00:00 75/45 (54) Room Air 07/21/22 00:00 97 Room Air 07/20/22 23:43 37.4 07/20/22 23:14 37.4 109 19 87/58 (67) 98 Room Air 07/20/22 23:00 80/47 (57) 96 Room Air 07/20/22 22:00 110 13 86/47 (61) 95 Room Air 07/20/22 21:26 37.4 07/20/22 21:00 117 20 81/45 (57) 98 Room Air 07/20/22 20:00 20 101/65 (74) 96 Room Air 07/20/22 20:00 97 Room Air 07/20/22 19:00 110 07/20/22 19:00 37.4 112 24 93/56 (73) 91 Room Air 07/20/22 18:00 105 12 96/66 (76) 98 Room Air 07/20/22 17:00 103 13 104/62 (76) 98 Room Air 07/20/22 16:00 100 19 99/71 (80) 100 Room Air 07/20/22 15:12 96 Room Air 07/20/22 15:00 97 9 102/56 (71) 98 Room Air 07/20/22 14:00 101 21 91/67 (75) 96 Room Air 07/20/22 13:00 92 36 84/56 (65) 95 Room Air 07/20/22 12:49 91 07/20/22 12:00 94 37 88/73 (78) 96 Room Air 07/20/22 12:00 37.1 07/20/22 11:26 98 Room Air 07/20/22 11:00 96 12 81/43 (56) 95 Room Air 07/20/22 10:00 62 83/52 (62) 94 Room Air I & O 07/21/22 07:00 Intake Total 4820 ml Output Total 200 ml Balance 4620 ml Height & Weight Height: '" Weight: lbs. oz. kg; 19.83 BMI Method: General Appearance: No Apparent Distress, Chronically ill, Thin HEENT: Pharynx Normal, Other (Abrasion left lateral tongue) Neck: Full Range of Motion, Non Tender, Supple Respiratory: Lungs Clear, No Accessory Muscle Use, No Respiratory Distress Cardiovascular: Regular Rate, Rhythm, No Murmur Extremity: No Calf Tenderness, No Pedal Edema Neurologic/Psychiatric: Alert, Oriented x3, Normal Mood/Affect Results Lab Laboratory Tests 07/19/22 17:57 07/20/22 05:18 07/21/22 03:59 BARRERA NANCE MD July 21, 2022 09:43
--- NOTE | 2022-07-21 09:47 | Diagnostic Imaging Report ---
INDICATION: Abdominal pain. Supine image of the abdomen reveals mild gaseous distention of colon most pronounced on the right. There is also gaseous distention of the stomach with percutaneous gastrostomy tube in place. Intrauterine device is present in the central pelvis. There is no obvious pneumoperitoneum. IMPRESSION: No acute abnormality or complication detected. Dictated by: Dictated on workstation # [id number]
[2022-07-21] MEDS: MUPIROCIN 2% OINT 22 GM (BACTROBAN) TUBE NSEACH SCH ×2 (09:57→20:17)
[2022-07-21] MEDS ORDERED: METOCLOPRAMIDE INJ 10 MG/2 ML (REGLAN) IVP SCH (12:00)
--- NOTE | 2022-07-21 12:08 | Tele-ICU Progress Note ---
Subjective Date Seen by a Provider: July 21, 2022 Time Seen by a Provider: 12:04 Subjective/Events-last exam (Tele-ICU Physician , Progress Note ) Service provided via interactive audio and video telecommunications E-CARE system to a patient admitted to ICU bed in [facility]. Patient is seen today due to persistent need of ICU care Available chart/ vitals / labs / Images reviewed Video assessment done using teleICU camera, rest of exam as per RN She is a 26-year-old female with past medical history of celiac disease chronic abdominal pain, gastroparesis status post PEG placement and TPN dependent admitted with hypokalemia and seizures. Her hypokalemia. She also has abdominal pain requiring continued use of Dilaudid.. She continues to have a nausea and vomiting. Impression 1. History of celiac disease with weight loss and inability to eat who orally due to chronic nausea no vomiting. 2. History of gastroparesis status post PEG tube placement 3. Weight loss requiring TPN administration 4. Electrolyte abnormality predominantly with hypokalemia 5. Seizure disorder on anticonvulsant therapy 6. Blood cultures positive for Emeli which were drawn through Groshong catheter and patient continues to have fever suspicious for sepsis with Emeli which is not uncommon while receiving TPN. Recommendations 1. We will discontinue Compazine and start on IV Reglan for couple of days and see whether she gets any better 2. Continue IV TPN at nighttime 3. Monitor electrolytes closely 4. We will start a Eraxis and await for final culture report. After 2 days of treatment will repeat blood cultures. Discussed with SALES PROMOTION MANAGER and in MDR rounds. Coordination of care with primary care physician and bedside consultants. I am remotely monitoring this patient from Tele icu station in [place]. I am unable to do the bedside exam, and history/physical and pertinent information is taken from other notes in the computer and bedside staff. Certain portions of this document may have been dictated utilizing voice recognition technology such as [employer]. Inherent to this technology, typographical and grammatical errors may exist. As much as I am diligent to identify and correct to these mistakes, some errors may remain in the document. Critical care time devoted to this patient today is approximately is--30 minutes. Sepsis Event Evaluation Height, Weight, BMI Height: '" Weight: lbs. oz. kg; 19.83 BMI Method: Exam Exam Patient acknowledged, consented, and participated in this virtual visit which was conducted using real time audio/video Vital Signs Date Time Temp Pulse Resp B/P (MAP) Pulse Ox O2 Delivery O2 Flow Rate FiO2 07/21/22 10:00 109 97/61 (71) 99 Room Air 07/21/22 09:00 114 13 98/60 (74) 100 Room Air 07/21/22 08:00 118 100/65 (76) 98 Room Air 07/21/22 08:00 37.8 07/21/22 07:30 97 Room Air 07/21/22 07:00 112 12 87/59 (69) 99 Room Air 07/21/22 07:00 110 07/21/22 06:00 110 11 85/48 (64) 98 07/21/22 06:00 107 13 85/48 (60) 98 Room Air 07/21/22 05:00 112 14 87/51 (64) 94 Room Air 07/21/22 04:13 99 Room Air 07/21/22 04:00 118 11 90/59 (67) Room Air 07/21/22 03:54 112 40 87/59 (67) 99 Room Air 07/21/22 03:30 114 13 65/42 (48) 98 Room Air 07/21/22 03:00 38.0 85/59 (66) 95 Room Air 07/21/22 02:30 16 90/54 (64) 97 Room Air 07/21/22 02:00 96/68 (74) 98 Room Air 07/21/22 01:35 37.4 07/21/22 01:00 109 07/21/22 00:11 105 17 97/63 (76) 100 Room Air 07/21/22 00:00 75/45 (54) Room Air 07/21/22 00:00 97 Room Air 07/20/22 23:43 37.4 07/20/22 23:14 37.4 109 19 87/58 (67) 98 Room Air 07/20/22 23:00 80/47 (57) 96 Room Air 07/20/22 22:00 110 13 86/47 (61) 95 Room Air 07/20/22 21:26 37.4 07/20/22 21:00 117 20 81/45 (57) 98 Room Air 07/20/22 20:00 20 101/65 (74) 96 Room Air 07/20/22 20:00 97 Room Air 07/20/22 19:00 110 07/20/22 19:00 37.4 112 24 93/56 (73) 91 Room Air 07/20/22 18:00 105 12 96/66 (76) 98 Room Air 07/20/22 17:00 103 13 104/62 (76) 98 Room Air 07/20/22 16:00 100 19 99/71 (80) 100 Room Air 07/20/22 15:12 96 Room Air 07/20/22 15:00 97 9 102/56 (71) 98 Room Air 07/20/22 14:00 101 21 91/67 (75) 96 Room Air 07/20/22 13:00 92 36 84/56 (65) 95 Room Air 07/20/22 12:49 91 I & O 07/21/22 07:00 Intake Total 4820 ml Output Total 200 ml Balance 4620 ml Height & Weight Height: '" Weight: lbs. oz. kg; 19.83 BMI Method: General Appearance: No Apparent Distress, Thin HEENT: Pharynx Normal, Other (Abrasion left lateral tongue) Neck: Full Range of Motion, Non Tender, Supple Respiratory: Lungs Clear, No Respiratory Distress Cardiovascular: Regular Rate, Rhythm, No Murmur Extremity: No Calf Tenderness, No Pedal Edema Neurologic/Psychiatric: Alert, Oriented x3 Results Lab Laboratory Tests 07/19/22 17:57 07/20/22 05:18 07/21/22 03:59 Assessment/Plan Assessment/Plan as above Critical Care: Critically Ill Patient Time spent with patient (mins): 30 BARRERA NANCE MD July 21, 2022 12:08
[2022-07-21] MEDS: ONDANSETRON 4 MG/2 ML (SDV) Z0FRAN IV PRN (17:56)
[2022-07-21] MEDS ORDERED: VANCOMYCIN 500 MG/VIAL IV ONE (18:46)
--- NOTE | 2022-07-21 23:39 | CONSULTATION REPORT ---
DATE OF SERVICE: 07/21/2022 ATTENDING PRIMARY CARE PHYSICIAN: Dr. Claudia Van. ADMITTING PHYSICIAN: Dr. Lulú Talbert. HISTORY OF PRESENT ILLNESS: The patient is a 26-year-old female with a history of multiple medical problems including seizure disorder as well as celiac disease and frequent episodes of nausea, vomiting and malnutrition. She has a Groshong implantable catheter placed as well as a gastrostomy tube for alimentation. The patient was admitted after a seizure activity while at work. We are being consulted to evaluate the drainage from her gastrostomy tube. The patient was also found to have candidemia and is being treated with antifungals. The patient's gastrostomy tube is functional; however, there does appear to be a reflux of fluid material back within the tubing likely secondary to also a known history of gastroparesis. PAST MEDICAL HISTORY: Seizure disorder, celiac disease, gastroparesis, candidemia. PAST SURGICAL HISTORY: Placement of a Groshong implantable catheter, percutaneous endoscopic gastrostomy tube placement. ALLERGIES: GLUTEN, PROCHLORPERAZINE. MEDICATIONS: Baclofen 10 mg t.i.d., chlorpromazine 10 mg daily, hydroxyzine 5 mg t.i.d. p.r.n., mirtazapine 15 mg daily, omeprazole 20 mg daily, promethazine 12.5 mg t.i.d. SOCIAL HISTORY: Negative smoke, negative alcohol. FAMILY HISTORY: Noncontributory. VITAL SIGNS: Temperature 36.2, blood pressure 96/61, pulse 93, respirations 25, pulse ox 97% on room air. REVIEW OF SYSTEMS: The patient is currently in no acute distress. She is not experiencing any shortness of breath or difficulty breathing. No chest pain, palpitations, or diaphoresis. Longstanding history of chronic nausea, vomiting as well as abdominal distention and has a gastrostomy tube in place. She does have intermittent episodes of diarrhea. No red blood per rectum, no dark tarry stools. No fever, chills and the patient is underweight secondary to issues with her celiac disease and gastroparesis. All other review of systems negative. PHYSICAL EXAMINATION: Will be evaluated upon examination of the patient in the a.m. The patient's information was accrued through the patient's admitting physician as well as the patient's electronic medical records. LABORATORY DATA: WBC 3.9, hemoglobin 9.5, hematocrit 29, platelets 164. BUN 6, creatinine 0.59. Liver function enzymes normal. Urinalysis, 1+ leukocyte esterase, moderate bacteria. Blood cultures positive for Emeli albicans. ASSESSMENT AND PLAN: A 26-year-old female with a seizure disorder and loss of consciousness admitted to the ICU for postictal state and close monitoring. A CT scan of the head did not show any abnormalities. She does have a longstanding history of celiac disease and frequent episodes of nausea and vomiting and has a Groshong implantable catheter as well as a gastrostomy tube. We have been consulted to evaluate the reflux material within the tubing of the gastrostomy tube. We feel that this is most likely due to her gastroparesis and we will recommend continued medical therapy for her candidemia and once more stable, start trickle tube feeds and if she is able to tolerate this without significant residual, then slowly increase to a goal of approximately 50 mL per hour. The patient does have a PICC line and due to her Emeli fungemia, will likely need to have her Groshong catheter removed as well. Job ID: [id number] DocumentID: [id number] Dictated Date: 07/21/2022 23:16:14 Residential Glazier Date: 07/21/2022 23:37:00 Dictated By: HUI CORONEL MD
[2022-07-22] MEDS: HYDROmorphone 2 MG/ML VIAL (DILAUDID) IVP PRN ×6 (00:17→10:56)
[2022-07-22] MEDS: CEFEPIME INJECTION 1,000 MG in NS (IVPB) 50 ML IV SCH ×2 (01:58→08:14)
[2022-07-22] MEDS: NS IV 1000 ML 1,000 ML IV SCH (01:58)
[2022-07-22] MEDS: VANCOMYCIN 500 MG/NS 100 ML IVPB IV SCH ×2 (02:41)
[2022-07-22] MEDS: ONDANSETRON 4 MG/2 ML (SDV) Z0FRAN IV PRN ×2 (02:41→09:27)
[2022-07-22] MEDS: PROMETHAZINE INJ 25 MG/ML (PHENERGAN) AMP IVP PRN ×2 (05:01→10:56)
[2022-07-22 05:18] LABS: HEMOGLOBIN 9.3 g/dL (11.5-16.0); WHITE BLOOD COUNT 2.7 10^3/uL (4.3-11.0)
[2022-07-22] MEDS: POTASSIUM CL 10MEQ/50ML IVPB 50 ML IV SCH ×5 (05:37→09:57)
[2022-07-22] MEDS: MAGNESIUM 1 GM/100 ML IVPB 100 ML IV SCH ×4 (05:37→10:55)
[2022-07-22] MEDS: KCL 20 MEQ TAB (K-DUR) PO SCH (05:37)
[2022-07-22 05:39] LABS: CALCIUM 7.2 MG/DL (8.5-10.1); CREATININE SERUM 0.51 MG/DL (0.60-1.30); POTASSIUM 3.5 MMOL/L (3.6-5.0)
[2022-07-22] MEDS: PANTOPRAZOLE 20 MG TABLET (PROTONIX) PO SCH (08:14)
[2022-07-22] MEDS: BACLOFEN 10 MG (LIORESAL) TAB PO SCH (08:14)
[2022-07-22] MEDS ORDERED: ANIDULAFUNGIN INJECTION 100 MG in NS (IVPB) 100 ML IV SCH (09:00)
[2022-07-22] MEDS: MUPIROCIN 2% OINT 22 GM (BACTROBAN) TUBE NSEACH SCH (09:00)
--- NOTE | 2022-07-22 09:19 | Progress Note - Hospitalist ---
Subjective HPI/CC On Admission Date Seen by Provider: July 22, 2022 Pt is a 26yoCF with a PMH of celiac disease, gastroparesis, PEG and TPN dependent status, and chronic hypokalemia who presented to the ER due to seizure like activity. She states she was setting up for an event at her job ([employer]) and moving tabel when she started to feel lightheaded and dizzy. She states her coworker noticed she didn't look right and asked her about it. She t hen doesnt' rememeber anything. Per witnesses she passed out and had tonic clonic like movements. She did not have any urinary incontinence but did bite her tongue. Then next thing she remembers is waking up in an ambulance. She states it took her a minute to get her bearings but does not describe any postictal type symptoms. She also complains of some chronic abd pain and some back pain since this happened. She normally takes Baclofen but in the hospital is given Dilaudid which helps. Subjective/Events-last exam Pt reports doing ok. Still having abd pain and drainage from PEG tube but less so than yesterday. Objective Exam Vital Signs Vital Signs Date Time Temp Pulse Resp B/P (MAP) Pulse Ox O2 Delivery O2 Flow Rate FiO2 07/22/22 10:00 102 96/79 (85) 97 Room Air 07/22/22 08:00 36.8 07/22/22 04:00 17 Capillary Refill : General Appearance: No Apparent Distress, Chronically ill, Thin Respiratory: Lungs Clear, No Accessory Muscle Use Cardiovascular: Regular Rate, Rhythm, No Murmur Gastrointestinal: Other (PEG tube area appears irritated and has some drainage of clear/green tinted fluid ) Neurologic/Psychiatric: Alert, Oriented x3 Results/Procedures Lab Laboratory Tests 07/22/22 05:05 Patient resulted labs reviewed. Imaging: Reviewed Imaging Report Assessment/Plan Assessment and Plan Assess & Plan/Chief Complaint Fever candidemia Eraxis Trial off Vanc Await cultures given port and PICC in place (PICC relatively new) Will repeat blood cultures tomorrow to make sure she has cleared infection but will likely need lines removed Syncope from orthostasis vs seizure like activity vs arrythmia Hypokalemia- resolved Unsure if seizure Did bite tongue but otherwise sounds like syncope and prolactin elevated Discussed risks with patient and she is agreeable with Keppra and Neurology outpatient referral Cardiology consulted, appreciate recs They plan to place Zio patch upon discharge Celiac disease PEG/TPN dependent Gastroparesis Chronic Diarrhea Chronic Abd pain Celiac diet Continue home meds as able negative KUB Surgery consulted, appreciate recs Critical Care Critically Ill Patient Diagnosis/Problems Diagnosis/Problems (1) Observed seizure-like activity (2) Hypokalemia STEVEN FITZGERALD MD July 22, 2022 09:19
--- NOTE | 2022-07-22 09:55 | Cardiology Progress Note ---
Subjective Date Seen by Provider: July 22, 2022 Time Seen by Provider: 09:54 Subjective/Events-last exam Patient was seen at bedside, laying down in bed, complaining of fatigue and loss of energy Objective-Cardiology Exam Last Set of Vital Signs Vital Signs 07/22/22 07/22/22 04:00 09:00 Pulse 86 Resp 17 B/P (MAP) 106/68 (80) Pulse Ox 100 O2 Delivery Room Air I&O Intake and Output 07/22/22 00:00 Intake Total 4120 ml Output Total 100 ml Balance 4020 ml Intake Oral 1570 ml IV Total 2550 ml Output Emesis 100 ml # Voids 8 # Bowel Movements 6 General: Alert, Oriented X3, Cooperative HEENT: Atraumatic, PERRLA Neck: Supple, No JVD, No Thyromegaly Lungs: Clear to Auscultation, Normal Air Movement Heart: Normal S1, Normal S2, No Murmurs, Other (Sinus tachycardia) Abdomen: Soft, No Hepatosplenomegaly, No Masses Extremities: No Clubbing, No Cyanosis, No Edema, Normal Pulses, No Tenderness/Swelling Skin: No Rashes, No Breakdown, No Significant Lesion Neuro: Normal Speech, Normal Tone, Sensation Intact Psych/Mental Status: Mental Status NL, Mood NL Results Lab Laboratory Tests 07/22/22 05:05 A/P-Cardiology Admission Diagnosis Syncope with Seizure like activity Hypokalemia Hyponatremia Celiac disease Assessment/Plan Sycnope with Seizure like activity. Reports hx of syncope in the remote past. Reports episode of dizziness and lightheadedness just prior to event. Denies any hx of seizure disorder. EKG showing SR. I am suspecting orthostatic hypotension, although underlying arrythmia cannot be excluded especially with her hypokalemia Telemetry monitoring did not show any arrhythmia other than sinus tachycardia Most probably hypotension resulted in syncope Blood pressure is better after receiving IV fluid Fever, diarrhea, nausea and vomiting and hypotension Dehydration, improving with IV fluid Management per medical team Celiac disease, has PEG tube Hypokalemia, replace and continue to monitor. Reports hx of chronic hypokalemia Hyponatremia OTILIA FITZGERALD MD July 22, 2022 09:55
--- NOTE | 2022-07-22 10:35 | Tele-ICU Progress Note ---
Subjective Date Seen by a Provider: July 22, 2022 Time Seen by a Provider: 10:35 Subjective/Events-last exam (Tele-ICU Physician , Progress Note ) Service provided via interactive audio and video telecommunications E-CARE system to a patient admitted to ICU bed in [facility]. Patient is seen today due to persistent need of ICU care Available chart/ vitals / labs / Images reviewed Video assessment done using teleICU camera, rest of exam as per RN Discussed with RN Events overnight : Afebrile hemodynamically stable Respiratory - ra I/O = Drips: ns 100 Pressors- no Hospital course: (07/19) 26 y/o F - Syncope - (?)Witnessed Seizure - Hx Celiac w/ Chronic Hypokalemia. 07/20 fever A/p Sycnope with Seizure like activity- ( orthostatic hypotension vs arrythmia with low K . CTH - no abnormalities ) - cards consulted . ECHO WNL -- given p.o. Valium , keppra started Po by bedside MD N/V - as per patient , has cheronic issues and had multiple meds failed with only phenergan being helphull - resume - PPI Fever 38C 07/19 patient report what had fever 2 weeks ago - blood work was done - negative results , resolved spontaneously cxr done - no infiltrate, UA WNL PCT borderline elv , covid neg - Blood cultures positive for Emeli BOTH Groshong catheter PICC ( placed 5 weeks ago , used nightly for TPN by patient ) receiving TPN - Eraxis started 07/21 - will repeat blood cx , she is at risk for Invasive candidiasis - cx from both catherters might mean colonisation , but given + 2 lnes and fever 38 thrue candidemya is more likely ( and removal of central lines might be nesessary ) - will need ophtalmology consult , ID consult , repeat cx lines/peripheral and advised to transfer to center where her care is established Celliarc dz - follows with GI - had PEG for malnutrition and intermittent TPN - ? refractory dz vs cofounding Dx - chronic abd pain ( agree with tx with dilaudid now - will not consider steroids given candidemia Hypokalemia ( chronic ) - replaced , monitor Nutrition - Po vs PEG TF - reasess , reported PEG leak - Sx consult pending Lines : picc right ( 5 weeks ago ) , (Central Line Necessity Reviewed) [place]: OG: Nutrition: Analgesia: Anxiety/ delirium VTE Prophylaxis: scd , ambulance Stress Ulcer Prophylaxis: ppi Plans in collaboration with bedside consultants and IM MDs.- discussed with Dr FITZGERALD Discussed with RN to reach out if any questions or concerns A total of 20 minutes of critical care time was devoted to this patient today, required to treat and/or prevent further deterioration of critical care condition ( as above ) . I am remotely monitoring this patient from another state. I am unable to do the bedside exam, and history/physical and pertinent information is taken from other notes in the computer and bedside staff Sepsis Event Evaluation Height, Weight, BMI Height: '" Weight: lbs. oz. kg; 19.83 BMI Method: Exam Exam Patient acknowledged, consented, and participated in this virtual visit which was conducted using real time audio/video Vital Signs Date Time Temp Pulse Resp B/P (MAP) Pulse Ox O2 Delivery O2 Flow Rate FiO2 07/22/22 10:00 102 96/79 (85) 97 Room Air 07/22/22 09:00 86 106/68 (80) 100 Room Air 07/22/22 08:00 36.8 07/22/22 08:00 84 99/67 (76) 97 Room Air 07/22/22 08:00 100 Room Air 07/22/22 07:00 84 88/55 (66) 98 Room Air 07/22/22 07:00 84 07/22/22 06:00 86 92/61 (71) 99 Room Air 07/22/22 05:00 83 93/62 (72) 100 Room Air 07/22/22 04:00 100 Room Air 07/22/22 04:00 81 17 88/59 (69) 97 Room Air 07/22/22 03:00 85 15 84/52 (63) 99 Room Air 07/22/22 02:00 92 12 91/58 (69) 96 Room Air 07/22/22 01:00 85 12 83/53 (63) 97 Room Air 07/22/22 01:00 90 07/22/22 00:00 90 25 84/57 (66) 99 Room Air 07/22/22 00:00 99 Room Air 07/21/22 23:00 98 12 90/57 (68) 95 Room Air 07/21/22 22:00 93 25 96/61 (73) 97 Room Air 07/21/22 21:00 93 17 94/65 (75) 97 Room Air 07/21/22 20:00 36.2 98 20 92/66 (75) 100 Room Air 07/21/22 20:00 100 Room Air 07/21/22 19:28 36.3 07/21/22 19:00 100 07/21/22 19:00 101 22 97/65 (76) 97 Room Air 07/21/22 18:00 86 22 92/61 (71) 93 Room Air 07/21/22 17:00 91 86/58 (66) 96 Room Air 07/21/22 16:08 99 Room Air 07/21/22 16:00 91 81/52 (60) 99 Room Air 07/21/22 15:53 37.2 07/21/22 15:00 103 13 93/68 (74) 100 Room Air 07/21/22 14:00 101 17 92/64 (72) 100 Room Air 07/21/22 13:00 105 13 93/61 (73) 98 Room Air 07/21/22 12:38 106 07/21/22 12:17 99 Room Air 07/21/22 12:00 37.3 07/21/22 12:00 102 90/60 (66) 99 Room Air 07/21/22 11:00 103 100/56 (69) 97 Room Air I & O 07/22/22 07:00 Intake Total 3850 ml Output Total 50 ml Balance 3800 ml Height & Weight Height: '" Weight: lbs. oz. kg; 19.83 BMI Method: General Appearance: No Apparent Distress, Chronically ill, Thin HEENT: Pharynx Normal, Other (Abrasion left lateral tongue) Neck: Full Range of Motion, Non Tender, Supple Respiratory: Lungs Clear, No Accessory Muscle Use Cardiovascular: Regular Rate, Rhythm, No Murmur Extremity: No Calf Tenderness, No Pedal Edema Neurologic/Psychiatric: Alert, Oriented x3 Results Lab Laboratory Tests 07/21/22 03:59 07/22/22 05:05 Assessment/Plan Assessment/Plan 1 NICKY IZQUIERDO MD July 22, 2022 10:35
--- NOTE | 2022-07-22 11:19 | Discharge Summary ---
Diagnosis/Chief Complaint Date of Admission July 21, 2022 at 12:13 Date of Discharge Discharge Date: July 22, 2022 Admission Diagnosis Syncope with seizure like activity Primary Care Claudia Van DO Discharge Diagnosis (1) Observed seizure-like activity (2) Hypokalemia Discharge Summary Discharge Physical Exam Allergies: Coded Allergies: gluten (Verified Allergy, Unknown, 07/19/22) prochlorperazine (Verified Allergy, Unknown, 07/19/22) metoclopramide (Verified Adverse Reaction, Mild, Itching, 07/21/22) Vitals & I&Os Vital Signs Date Time Temp Pulse Resp B/P (MAP) Pulse Ox O2 Delivery O2 Flow Rate FiO2 07/22/22 12:25 07/22/22 12:00 37.1 07/22/22 12:00 100 Room Air 07/22/22 12:00 90 07/22/22 11:00 8 General Appearance: No Apparent Distress, Chronically ill, Thin Cardiovascular: Regular Rate, Rhythm Gastrointestinal: Other (PEG with skin irritation and gastric contents draining) Neurologic/Psychiatric: Alert, Oriented x3 Hospital Course Patient is a 26-year-old female who was admitted to the hospital due to seizure-like activity. She was at work and had an episode where she lost consciousness and witnesses saw seizure-like activity and that she was jerking her arms. She had prodromal symptoms of lightheadedness and dizziness and she was found to be quite hypokalemic so there was concern for dysrhythmia and cardiology was consulted. She was admitted to the ICU. She also reported biting her tongue and so she was started on Keppra and a referral was placed for outpatient neurology after initial CT head was read as negative. She then developed a persistent fever of 38.7. She reports this happened a couple weeks ago but self resolved. She has a relatively new PICC line and also has a port in place. She reports a history of bacteremia with her port needing to be removed and replaced in the past. Blood cultures were drawn from both her PICC and her port along with a chest x-ray UA and COVID and flu swabs being done. She was negative for both COVID and flu. Her chest x-ray was negative and her UA was negative. Her blood cultures came back positive for Emeli albicans in both her PICC and her port. Eraxis was started on 07/21 when these resulted as positive. Due to the complexity of her chronic medical issues and history of recurrent bacteremia it was felt that she needed infectious disease evaluation. I called and spoke with Dr Foster at [place] who accepted her in transfer. We attempted to arrange for ambulance transfer but there is none available this weekend through [facility]. She elected to transfer via private vehicle and Dr Foster was ok with this. She was transferred in stable condition. Her last dose of Eraxis was at 0850 07/22/22. Of note her chronic gastroparesis was causing some excess drainage from her PEG tube and irritation of the skin around it. Surgery was consutled for evaluate and KUB was negative for any free air. Labs (last 24 hrs) Microbiology 07/19/22 Urine Culture - Final, Complete See Comments 07/19/22 Blood Culture - Preliminary, Resulted Emeli albicans 07/19/22 MRSA Screen - Final, Complete Patient resulted labs reviewed. Pending Labs Imaging: Reviewed Imaging Report Discussion & Recommendations Discharge Planning: >30 minutes discharge planning Discharge Home Medications: Active Scripts Active Reported Mirtazapine 15 Mg Tab.rapdis 7.5 Mg PO HS TAKES OF A 15MG Multivitamin 1 Each Tablet 1 Each PO DAILY Ibuprofen 200 Mg Tablet 400-600 Mg PO Q8H PRN Tylenol Extra Strength (Acetaminophen) 500 Mg Tablet 500-1,000 Mg PO Q8H PRN Omeprazole Magnesium 20 Mg Capsule.dr 20 Mg PO DAILY Hydroxyzine HCl 10 Mg/5 Ml Solution 5 Ml PO TID PRN Promethazine Tablet (Promethazine HCl) 25 Mg Tablet 12.5-25 Mg PO TID TAKES TO 1 (25MG) TAB Chlorpromazine HCl 10 Mg Tablet 10 Mg PO HS Baclofen 10 Mg Tablet 10 Mg PO TID Instructions to patient/family Please see electronic discharge instructions given to patient. Copy Copies To 1: STEVEN Pimentel MD July 22, 2022 11:19
--- NOTE | 2022-07-22 12:36 | Progress Note ---
Subjective Date Seen by a Provider: July 22, 2022 Subjective/Events-last exam having abdominal distention and crampy pain. intermittent nausea and vomiting. abd soft and mildly distended. states passing small amounts of flatus. Objective Exam Vital Signs Date Time Temp Pulse Resp B/P (MAP) Pulse Ox O2 Delivery O2 Flow Rate FiO2 07/22/22 12:00 37.1 07/22/22 12:00 90 100/60 (73) 96 Room Air 07/22/22 11:00 104 8 113/80 (89) 96 Room Air 07/22/22 10:00 102 96/79 (85) 97 Room Air 07/22/22 09:00 86 106/68 (80) 100 Room Air 07/22/22 08:00 36.8 07/22/22 08:00 84 99/67 (76) 97 Room Air 07/22/22 08:00 100 Room Air 07/22/22 07:00 84 88/55 (66) 98 Room Air 07/22/22 07:00 84 07/22/22 06:00 86 92/61 (71) 99 Room Air 07/22/22 05:00 83 93/62 (72) 100 Room Air 07/22/22 04:00 100 Room Air 07/22/22 04:00 81 17 88/59 (69) 97 Room Air 07/22/22 03:00 85 15 84/52 (63) 99 Room Air 07/22/22 02:00 92 12 91/58 (69) 96 Room Air 07/22/22 01:00 85 12 83/53 (63) 97 Room Air 07/22/22 01:00 90 07/22/22 00:00 90 25 84/57 (66) 99 Room Air 07/22/22 00:00 99 Room Air 07/21/22 23:00 98 12 90/57 (68) 95 Room Air 07/21/22 22:00 93 25 96/61 (73) 97 Room Air 07/21/22 21:00 93 17 94/65 (75) 97 Room Air 07/21/22 20:00 36.2 98 20 92/66 (75) 100 Room Air 07/21/22 20:00 100 Room Air 07/21/22 19:28 36.3 07/21/22 19:00 100 07/21/22 19:00 101 22 97/65 (76) 97 Room Air 07/21/22 18:00 86 22 92/61 (71) 93 Room Air 07/21/22 17:00 91 86/58 (66) 96 Room Air 07/21/22 16:08 99 Room Air 07/21/22 16:00 91 81/52 (60) 99 Room Air 07/21/22 15:53 37.2 07/21/22 15:00 103 13 93/68 (74) 100 Room Air 07/21/22 14:00 101 17 92/64 (72) 100 Room Air 07/21/22 13:00 105 13 93/61 (73) 98 Room Air 07/21/22 12:38 106 I & O 07/22/22 07:00 Intake Total 3850 ml Output Total 50 ml Balance 3800 ml Capillary Refill : General Appearance: No Apparent Distress HEENT: PERRL/EOMI Neck: Full Range of Motion Respiratory: Chest Non Tender Cardiovascular: Regular Rate, Rhythm Gastrointestinal: soft, distended Extremity: Normal Capillary Refill Neurologic/Psychiatric: Alert, Oriented x3 Skin: Normal Color Lymphatic: No Adenopathy Results Lab Laboratory Tests 07/22/22 05:05: White Blood Count 2.7L, Red Blood Count 3.37L, Hemoglobin 9.3L, Hematocrit 28L, Mean Corpuscular Volume 83, Mean Corpuscular Hemoglobin 28, Mean Corpuscular Hemoglobin Concent 33, Red Cell Distribution Width 13.8, Platelet Count 126L, Mean Platelet Volume 9.0, Percent Immature Platelet Fraction 1.5, Sodium Level 137, Potassium Level 3.5L, Chloride Level 111H, Carbon Dioxide Level 21, Anion Gap 5, Blood Urea Nitrogen 4L, Creatinine 0.51L, Estimat Glomerular Filtration Rate 130, BUN/Creatinine Ratio 8, Glucose Level 76, Calcium Level 7.2L 07/22/22 05:48: Magnesium Level 1.5L Microbiology 07/19/22 Urine Culture - Final, Complete See Comments 07/19/22 Blood Culture - Preliminary, Resulted YEAST 07/19/22 MRSA Screen - Final, Complete Assessment/Plan Assessment/Plan Assess & Plan/Chief Complaint SBO with hx severe CHF. s/p some type of bariatric procedure in 1981 which was considered experimental. will proceed with EGD guided NGT placement. HUI CORONEL MD July 22, 2022 12:35
--- NOTE | 2022-07-22 12:39 | Progress Note ---
Standard Progress Note Progress Notes/Assess & Plan Date Seen by a Provider: July 22, 2022 Time Seen by a Provider: 11:00 Progress/Assessment & Plan PE: chest-good BS bilat. heart-regular, no murmurs. extr-no LE edema, neg homans abd-soft, non-tender, non distended, drainage consistent with static gastric contents. skin-warm/dry HUI CORONEL MD July 22, 2022 12:39
== END 2022-07-22 12:25 | disposition short-term general hospital (02) | DRG 314 ==
LOC: ER 09:18 → ICU 11:45 → OBSVTOIN 07-21 12:13
PROVIDERS: ADMIT Family Medicine; ATTEND Family Medicine
DX: T80.211A Bloodstream infection due to central venous catheter, initial encounter (principal); B37.7 Candidal sepsis; E87.1 Hypo-osmolality and hyponatremia; R56.9 Unspecified convulsions; E86.0 Dehydration; E87.6 Hypokalemia; K90.0 Celiac disease; K31.84 Gastroparesis; R45.88 Nonsuicidal self-harm; S01.552A Open bite of oral cavity, initial encounter; F12.90 Cannabis use, unspecified, uncomplicated; R19.7 Diarrhea, unspecified; Z20.822 Contact with and (suspected) exposure to COVID-19; Z93.1 Gastrostomy status; Z79.1 Long term (current) use of non-steroidal anti-inflammatories (NSAID); Z79.899 Other long term (current) drug therapy; Z88.8 Allergy status to other drugs, medicaments and biological substances
CPT/HCPCS: 36415; 36556; 70450; 71045; 74018; 80048; 80053; 80202; 81000; 83735; 84145; 84146; 85025; 85027; 87040; 87081; 87088; 87106; 87636; 93005; 93306; G0378